=== PATIENT | female | born 2000 | race Caucasian/White ===

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

== ENCOUNTER 2020-01-23 16:19 | Emergency (ER) | payer OTHER, MEDICAID ==
[~2020-01-23] VITALS: Ht 165.1 cm; Wt 71.7 kg
[~2020-01-23 16:19] MED LIST changes: +KEFLEX500 M2 PO
[2020-01-23] MEDS ORDERED: TRAMADOL 50 MG50 MG PO (16:52)
[2020-01-23] MEDS ORDERED: AMOXICILLIN 50500 MG PO (16:52)
[2020-01-23 16:56] VITALS: BP 113/73
== END 2020-01-23 16:57 | disposition home or self-care (01) ==
LOC: M.ERS 16:19
DX: K04.7 Periapical abscess without sinus (principal); F41.9 Anxiety disorder, unspecified